=== PATIENT | female | born 1985 | race Caucasian/White ===

== ENCOUNTER 2016-04-10 14:08 | Inpatient (IN) | payer OTHER ==
[2016-04-10] MEDS: LACTATED RINGERS 1,000 ML IV PRN ×3 (14:45→23:05)
[2016-04-10] MEDS ORDERED: PENICILLIN G POTASSIUM 5 MMU VIAL ONE (14:49)
[2016-04-10] MEDS ORDERED: LACTATED RINGERS 1,000 ML ONE (14:50)
[2016-04-10] MEDS ORDERED: IV START KIT ONE (14:50)
[2016-04-10] MEDS ORDERED: OXYTOCIN IN LR 500 ML IV ONE ×2 (14:50→14:52)
[2016-04-10] MEDS ORDERED: PENICILLIN G POTASSIUM 5 MMU in NS 0.9% (MINI-BAG PLUS) 100 ML IV ONE (14:50)
[2016-04-10] MEDS ORDERED: NS 0.9% (MINI-BAG PLUS) 100 ML IV ONE (14:50)
[2016-04-10] MEDS ORDERED: LIDOCAINE Viscous 2% 15 ML UDCUP ONE (14:51)
[2016-04-10] MEDS ORDERED: SODIUM CHLORIDE 0.9% FLUSH 20 ML ONE (14:51)
[2016-04-10] MEDS ORDERED: MINERAL OIL 25 ML BOT ONE (14:51)
[2016-04-10] MEDS ORDERED: LIDOCAINE 1% (PRES FREE) 30 ML VIAL ONE (14:51)
[2016-04-10] MEDS ORDERED: OXYTOCIN 10 UNITS/ML VIAL ONE (14:51)
[2016-04-10] MEDS ORDERED: PUMP TUBING ONE (14:52)
[2016-04-10] MEDS ORDERED: LACTATED RINGERS 1,000 ML IV SCH (15:00)
[2016-04-10 15:27] LABS: HEMATOCRIT 35.1 % (37.0-47.0); HEMOGLOBIN 11.8 gm/l (12.0-16.0); MEAN CELL VOLUME 87.5 fl (81.0-99.0); MEAN CORPUSCULAR HEMOGLOBIN 29.4 pg (27.0-31.0); MEAN CORPUSCULAR HGB CONC 33.6 g/dl (33.0-37.0); RED CELL DISTRIBUTION WIDTH 14.1 % (11.5-14.5)
[2016-04-10 15:57] VITALS: BMI 28.1
[2016-04-10] MEDS ORDERED: PENICILLIN G 3 MIL UNIT PREMIX 50 ML IV ONE ×2 (18:03→22:34)
[2016-04-10] MEDS: PENICILLIN G 3 MIL UNIT PREMIX 3 MMU in Premix (D5W) 50 ml 1 EACH IV SCH ×2 (19:01→23:05)
[2016-04-11] MEDS ORDERED: FLU VACC 2016-17 (36MO-64Y)/PF 60 MCG/0.5 ML SYRINGE IM V ONE (00:30)
[2016-04-11] MEDS ORDERED: ACETAMINOPHEN 325 MG TABLET PO PRN (00:35)
[2016-04-11] MEDS ORDERED: LANOLIN 50 APPLIC/7G TUBE TP PRN (00:35)
[2016-04-11] MEDS ORDERED: DOCUSATE SODIUM 100 MG CAPSULE PO PRN (00:35)
[2016-04-11] MEDS ORDERED: LACTATED RINGERS 1,000 ML IV PRN (00:35)
[2016-04-11] MEDS ORDERED: BENZOCAINE/MENTHOL 60 APPLIC/BOT TP PRN (00:35)
[2016-04-11] MEDS ORDERED: CALCIUM CARBONATE 500 MG TAB.CHEW PO PRN (00:35)
[2016-04-11] MEDS ORDERED: METHYLERGONOVINE MALEATE 0.2 MG/ML 1ML AMP ONE (00:57)
[2016-04-11] MEDS ORDERED: METHYLERGONOVINE MALEATE 0.2 MG/ML 1ML AMP IV ONE (00:59)
[2016-04-11] MEDS: HYDROCODONE/ACETAMINOPHEN 5/325MG TABLET PO PRN ×5 (01:21→22:48)
[2016-04-11] MEDS: IBUPROFEN 800 MG TABLET PO SCH ×4 (01:22→21:16)
--- NOTE | 2016-04-11 03:47 | PCMAN ---
OB Admission Note - History : 5 Term: 4 : 0 Abortions (S&E): 0 Livin EDC:: 04/13/16 (by LMP) Gestational Age (weeks): 39 Days (#/7): 4 Admit Cervical Dilation:: 5 Admit Cervical Effacement (%):: 90 Admit Station:: -2 Admit Presentaton:: [facility] Membrane Status: Intact Labor Onset (Date): 04/10/16 Labor Onset (Time): 22:00 Contractions: Yes Contraction Frequency:: 2-4MIN Heart Rate:: 145 (moderate, accels present, decels absent ) Status:: cat I appropriate for IA EFW:: 7.5lbs Summary of Course:: Onset to care at 9w x 12 visits. Pre wt 155, BMI 23.4, TWG 28lbs. Uncomplicated . OB Hx includes PPH with 1st , and rapid labors. GBS positive. started with increased regular BHs contractions through the night that became stronger. Was -1 in the clinic. Arrived at [facility] approx 1hr later to initiate GBS antibiotic prophylaxis. Desires unmedicated labor, open to AROM if minimal to no progress. - Labs Blood Type: B (+) positive Hct/Hgb:: 12.3 Rubella Status: Equivocal GBS Status: Positive Abnormal Labs: None Other Labs:: 1hr GTT 123 - Review of Systems ROS neg - Physical Exam General: Afebrile Psych/Mental Status: Mood/Affect Appropriate, Judgment/Insight Intact, Bonding Well Lungs: Clear to Auscultation Bilaterally Cardiovascular: Regular Rate and Rhythm Genitourinary: Normal Female Genitalia Rectal Exam: Deferred Extremities: Full ROM Skin: Normal Color, Warm, Dry, Intact - Problems (1) Uterine contractions during Status: Acute Code: O62.2 Assessment/Plan: A: with IUP at 39w5d Spontaneous onset of contractions membranes intact, GBS positive FHT: Cat I, appropriate for IA P: Admit to [facility], initiate GBS prophylaxis, IA for monitoring, encourage rest and active movement as Sara desires. Anticipate
--- NOTE | 2016-04-11 03:53 | PDOC36 ---
Provider Note Subject: labor progress note - AROM Note: S: Sara reports feeling stronger contractions but still feels there hasn't been enough change, desires AROM augmentation. O: VE: 6/80/-1, soft, anterior, head well applied to cervix IA: 140 baseline, no decreases, can continue with IA Ctx: q 2-3min, lasting 60-90 sec, mild to moderate Vitals: BP:132/75 T:76 P: 76, R: 16 A: with IUP at 39w5d Spontaneous onset of contractions membranes intact, GBS positive, PCN x 2, afebrile FHT: Cat I, appropriate for IA P: Reviewed AROM, followed by AROM For clear fluid. Encouraged up right positions and active movement.
--- NOTE | 2016-04-11 05:53 | PCMDEL ---
Delivery Note - Labor 1st stage (hr/min):: 1h36m 2nd stage (hr/min):: 0h15m 3rd stage (hr/min):: 0h13m Total (hr/min):: 2h4m Pushed (hr/min):: 0h15m - Delivery Delivery (Date): 04/10/16 Delivery (Time): 23:51 Gender: Female Weight: 8 lb 8 oz Presentation: Cephalic Position: OA Umbilical Cord: 3 Vessel Delayed Cord Clamping:: > 3 min 1 Minute Total: 8 5 Minute Total: 9 Placenta:: spontaneous, davis, intact, 3vc EBL:: 500ml Perineum:: intact Suture:: none Anesthesia/Meds:: none Length ROM:: 1h51m Comments:: Sara had initial slow latent labor. After she received adequate GBS prophylaxis, she requested and received AROM augmentation and then progressed rapidly to achieve while hands and knees on the ball in bed. She delivered a vigorous female infant, OA, Apgars 8/9, Sara rotated over to supine and baby was placed skin to skin for drying and bonding. Delayed cord clamping until cessation of pulsation, cut by FOB. AMTSL declined. Cord blood collected. Spontaneous delivery of intact, davis, placenta, with 3vc. Minimal bleeding. Small 1st deg perineal laceration noted but found to be naturally hemostatic and approximated, thus repair not needed. Fundus firm midline at U. EBL 300ml. Mom and baby stable, baby to breast. CNM called to room by RN for increased blood and clotting with fundal massage. Approx 200ml blood on the pad plus mild/moderate clotting, though fundus firm slightly deviated to the right, at umbilicus. IM methergine given for lower uterine segment and Sara declined straight cath and stated she would get up after to pee because she well the urge to go. Denies lightheadedness, ringing in ears, and vitals stable. Bleeding stabilized and Sara was able to get up to void without issue and empty her bladder. Total EBL was 500ml and mom stable.
--- NOTE | 2016-04-11 20:45 | PDOC44 ---
- Subjective Day: 1 (stable) Sitting up in bed with baby. Reports she is feeling much better today. Up ad shirley without issue to void. Has not had a bowl movement but is passing gas. Pain well controlled with PO meds and bleeding has decreased. going well. Desires to go home in the morning. Reports Flatus, Reports Pain Tolerable, Reports , Reports Tolerating Regular Diet - Objective Temp Pulse Resp BP Pulse Ox 97.7 F 65 16 114/75 04/11/16 16:02 04/11/16 16:02 04/11/16 16:02 04/11/16 16:02 Current Medications Generic Name Dose Route Start Last Admin Trade Name Freq PRN Reason Stop Dose Admin Acetaminophen 325 - 650 mg 04/11/16 00:35 Tylenol PO Q4H PRN Pain (Mild) Acetaminophen/Hydrocodone Bitart 1 - 2 tab 04/11/16 00:35 04/11/16 16:08 Tappan 5/325 PO 1 tab Q4H PRN Administration Pain (Moderate) Benzocaine/Menthol 1 applic 04/11/16 00:35 Dermoplast TP PRN PRN Patient Comfort Calcium Carbonate/Glycine 500 - 1,000 mg 04/11/16 00:35 Tums PO BID PRN Indigestion Docusate Sodium 100 mg 04/11/16 00:35 Colace PO DAILY PRN Comfort Emollient Ointment 1 applic 04/11/16 00:35 [id number] TP PRN PRN sore nipples Lactated Ringer's 1,000 mls @ 100 mls/hr 04/11/16 00:35 Lactated Ringers IV .Q10H PRN Titrate per clinical situation Ibuprofen 800 mg 04/11/16 00:35 04/11/16 14:25 Motrin PO 800 mg Q6H AVELINA Administration Sodium Chloride 10 ml 04/11/16 00:35 04/11/16 01:05 Normal Saline 10ml Flush IV 10 ml PRN PRN Administration IV Flush - Physical Exam General: Afebrile Psych/Mental Status: Mood/Affect Appropriate, Judgment/Insight Intact, Bonding Well Neurological: Grossly Intact, Alert, Oriented x 4, Normal Gait, Normal Speech Lungs: Clear to Auscultation Bilaterally Cardiovascular: Regular Rate and Rhythm Breast: Soft, Skin intact, Nipples Intact Fundus: Firm, Midline, Below Umbilicus Lochia: Light Extremities: Full ROM - Problems:Assessment/Plan (1) (spontaneous vaginal delivery) Status: Acute Assessment/Plan: A: PPD #1 s/p , EBL 500ml exclusively Up ad shirley P: Discharge handout given. Reinforcement for continued skin to skin and hand expression to assist with milk supply if baby doesn't latch frequently. Given frequent diaper changes and no not wt loss, milk supply appears to within normal range. Anticipate DC tomorrow. Disposition: Anticipate DC Home Tomorrow
[2016-04-12] MEDS: IBUPROFEN 800 MG TABLET PO SCH ×3 (01:05→13:48)
[2016-04-12] MEDS: HYDROCODONE/ACETAMINOPHEN 5/325MG TABLET PO PRN (03:51)
[2016-04-12 05:57] LABS: HEMATOCRIT 33.2 % (37.0-47.0); HEMOGLOBIN 10.7 gm/l (12.0-16.0)
--- NOTE | 2016-04-12 10:04 | PDOC39B ---
Hospital Course: ADMIT DATE: 04/10/16 DISCHARGE DATE: 04/12/15 ADMISSION DIAGNOSES: Active Labor PROCEDURES: HISTORY OF PRESENT ILLNESS: 30 year old G5 T4 L4 at 39 weeks 4 days presenting with active labor. HOSPITAL COURSE: Sara had initial slow latent labor. After she received adequate GBS prophylaxis, she requested and received AROM augmentation and then progressed rapidly to achieve while hands and knees on the ball in bed. She delivered a vigorous female , OA, Apgars 8/9, Sara rotated over to supine and baby was placed skin to skin for drying and bonding. Delayed cord clamping until cessation of pulsation, cut by FOB. AMTSL declined. Cord blood collected. Spontaneous delivery of intact, davis, placenta, with 3vc. Minimal bleeding. Small 1st deg perineal laceration noted but found to be naturally hemostatic and approximated, thus repair not needed. Fundus firm midline at U. EBL 300ml. Mom and baby stable, baby to breast. CNM called to room by RN for increased blood and clotting with fundal massage. Approx 200ml blood on the pad plus mild/moderate clotting, though fundus firm slightly deviated to the right, at umbilicus. IM methergine given for lower uterine segment and Sara declined straight cath and stated she would get up after to pee because she well the urge to go. Denies lightheadedness, ringing in ears, and vitals stable. Bleeding stabilized and Sara was able to get up to void without issue and empty her bladder. Total EBL was 500ml and mom stable. recovery was routine and uneventful. She has been up ad shirley without issue to void. Pain well controlled with PO meds and bleeding has decreased. going well. By day of discharge the patient is stable, well and ready to go home. - Physical Exam Vital Signs: Temp Pulse Resp BP Pulse Ox 98.2 F 56 18 118/59 04/12/16 07:49 04/12/16 07:49 04/12/16 07:49 04/12/16 07:49 General: Afebrile Psych/Mental Status: Mood/Affect Appropriate, Judgment/Insight Intact Neurological: Grossly Intact, Alert, Oriented x 4, Normal Gait, Normal Speech Lungs: Clear to Auscultation Bilaterally Cardiovascular: Regular Rate and Rhythm Breast: Soft, Skin intact, Nipples Intact Fundus: Firm, Midline, Below Umbilicus Lochia: Light - Discharge Diagnosis (1) (spontaneous vaginal delivery) Status: Acute Assessment/Plan: A: PPD #2 s/p , EBL 500ml exclusively Up ad shirley stable and appropriate for discharge P: Discharge home today. Reviewed warning s/s and when to call CNM. Reinforcement for continued skin to skin and hand expression to assist with milk supply if baby doesn't latch frequently. Given frequent diaper changes and no not wt loss, milk supply appears to within normal range. Anticipate DC tomorrow. - Discharge Plan Condition: Stable Disposition: Home Instruction Forms: Vaginal Discharge Instructions Additional Instructions: Midwifery 'After the ' handout given to patient. Prescriptions: Hydrocodone Bit/Acetaminophen [NORCO 5/325 MG TABLET (SHF)] 1 - 2 tab PO Q4H PRN #20 tablet PRN Reason: Pain (Moderate) Follow-Up: Belén Rangel CNM [Certified Nurse Billing Adjudicator] - 04/24/16 1:20 pm
[2016-04-12 15:40] VITALS: BP 121/74
== END 2016-04-12 18:28 | disposition home or self-care (01) | DRG 775 ==
LOC: FBC 14:08 → EDSTATUS 04-16 14:25
PROVIDERS: ADMIT Advanced Practice Midwife; ATTEND Advanced Practice Midwife
PROC: 10E0XZZ Delivery of Products of Conception, External Approach (ICD-10-PCS; principal; 2016-04-11)
PROC: 10907ZC Drainage of Amniotic Fluid, Therapeutic from Products of Conception, Via Natural or Artificial Opening (ICD-10-PCS; 2016-04-11)
DX: O99.824 Streptococcus B carrier state complicating childbirth (principal); O70.0 First degree perineal laceration during delivery; Z3A.39 39 weeks gestation of pregnancy; Z37.0 Single live birth; Z28.21 Immunization not carried out because of patient refusal

== ENCOUNTER 2016-05-14 16:15 | Outpatient (CLI) | payer OTHER | END 2016-05-14 16:16 | disposition home or self-care (01) | LOC: BABIESSH 16:15 | PROVIDERS: ATTEND Advanced Practice Midwife | DX: Z39.1 Encounter for care and examination of lactating mother (principal) ==

== ENCOUNTER 2016-05-27 15:02 | Outpatient (CLI) | payer OTHER | END 2016-05-27 15:03 | disposition home or self-care (01) | LOC: BABIESSH 15:02 | PROVIDERS: ATTEND Advanced Practice Midwife | DX: Z39.1 Encounter for care and examination of lactating mother (principal) ==

== ENCOUNTER 2016-06-05 12:21 | Outpatient (CLI) | payer OTHER | END 2016-06-05 12:22 | disposition home or self-care (01) | LOC: SUATTDRO 12:21 → BABIESSH 12:21 | PROVIDERS: ATTEND Advanced Practice Midwife | DX: O92.70 Unspecified disorders of lactation (principal) ==

== ENCOUNTER 2016-06-10 13:14 | Outpatient (CLI) | payer OTHER | END 2016-06-10 13:15 | disposition home or self-care (01) | LOC: BABIESSH 13:14 | PROVIDERS: ATTEND Advanced Practice Midwife | DX: Z39.1 Encounter for care and examination of lactating mother (principal) ==